=== PATIENT | female | born 1995 | race African-American/Black ===

== ENCOUNTER 2019-11-01 12:05 | Emergency (ER) | payer OTHER ==
[~2019-11-01] VITALS: Ht 165.1 cm; Wt 77.1 kg
[2019-11-01 12:17] VITALS: Ht 165.1 cm; Wt 77.1 kg
[2019-11-01 13:39] VITALS: BP 128/85
== END 2019-11-01 13:39 | disposition home or self-care (01) ==
LOC: ED 12:05
DX: F41.9 Anxiety disorder, unspecified (principal); R11.0 Nausea; I10 Essential (primary) hypertension; E11.9 Type 2 diabetes mellitus without complications; Z76.0 Encounter for issue of repeat prescription